=== PATIENT | female | born 1965 | race Hispanic/Latino ===

== ENCOUNTER 2018-07-12 14:32 | Emergency (ER) | payer MEDICARE ==
[2018-07-12 14:32] VITALS: BMI 34.9
[2018-07-12 14:52] VITALS: TEMP 98.4
[2018-07-12 15:30] VITALS: BP 120/80; PULSE 60
[2018-07-12 15:31] VITALS: RESP 16
[2018-07-12 15:34] VITALS: O2SAT 96
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
== END 2018-07-12 15:30 | disposition home or self-care (01) ==
LOC: C.ER 14:32
DX: Z00.00 Encounter for general adult medical examination without abnormal findings (principal)